=== PATIENT | male | born 1980 | race Caucasian/White ===

== ENCOUNTER → 2019-04-05 | Outpatient (CLI) | payer BC ==
--- NOTE | 2019-04-05 14:32 | US ---
EXAMINATION TYPE: US venous doppler duplex LE RT DATE OF EXAM: 04/05/2019 1:21 PM COMPARISON: NONE CLINICAL HISTORY: M79.604 pain in right leg. Right leg area of pain, swelling and warm to the touch SIDE PERFORMED: Right TECHNIQUE: The lower extremity deep venous system is examined utilizing real time linear array sonog rolando with graded compression, doppler sonography and color-flow sonography. VESSELS IMAGED: External Iliac Vein (EIV) Common Femoral Vein Deep Femoral Vein Greater Saphenous Vein * Femoral Vein Popliteal Vein Small Saphenous Vein * Proximal Calf Veins (* superficial vessels) Right Leg: Appears negative for DVT Right leg at patient's area of concern: thrombus seen within greater saphenous vein above knee, at kn ee and below knee. This is noncompressible. IMPRESSION: 1. Right lower extremity ultrasound negative for deep venous thrombosis. 2. There is thrombus within a superficial vessel, the greater saphenous vein at and below the level o f the knee.
== END | disposition home or self-care (01) ==
LOC: RADUSWWP 12:57
PROVIDERS: ATTEND Family Medicine
DX: I82.811 Embolism and thrombosis of superficial veins of right lower extremity (principal)

== ENCOUNTER 2019-12-26 18:41 | Emergency (ER) | payer BC ==
[2019-12-26 18:46] VITALS: BP 140/90; PULSE 73; RESP 16; TEMP 97.8
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
[2019-12-26 19:18] LABS: Appearance,Urine Cloudy (Clear); Bacteria,Urine Occasional /hpf; Bilirubin,Urine Negative (Negative); Blood,Urine Large (Negative); Budding Yeast,Urine Moderate /hpf; Color,Urine Red; Glucose,Urine (UA) Negative (Negative); Ketones,Urine Trace (Negative); Leukocyte Esterase,Urine Small (Negative); Mucus,Urine Many /hpf; Nitrite,Urine Negative (Negative); PH, Urine 5.5 (5.0-8.0); Protein,Urine 2+ (Negative); RBC,Urine >182 /hpf (0-5); Specific Gravity,Urine 1.025 (1.001-1.035); Squamous Epithelial Cell,Urine 5 /hpf (0-4); Urobilinogen,Urine <2.0 mg/dL (<2.0); WBC,Urine 77 /hpf (0-5)
[2019-12-26] MEDS ORDERED: cefTRIAXone 1,000 MG VIAL (IM USE) IM STA (19:49)
[2019-12-26] MEDS ORDERED: traMADol 50 MG STARTER PACK 3 TAB BTL PO STA (19:49)
[2019-12-26] MEDS ORDERED: KETOROLAC 30 MG/ML 1 ML VIAL IM STA (20:00)
== END 2019-12-26 20:18 | disposition home or self-care (01) ==
LOC: EC 18:41
DX: R82.71 Bacteriuria (principal); R31.9 Hematuria, unspecified; R10.2 Pelvic and perineal pain; Z95.0 Presence of cardiac pacemaker; Z90.49 Acquired absence of other specified parts of digestive tract
CPT/HCPCS: 81001; 87086; 99284; 96372 ×2; J0696; J1885

== ENCOUNTER → 2020-01-10 | Outpatient (CLI) | payer BC ==
--- NOTE | 2020-01-11 07:20 | XR ---
EXAMINATION TYPE: XR KUB DATE OF EXAM: 01/10/2020 COMPARISON: 08/07/2015 HISTORY: Abdominal pain TECHNIQUE: One view abdominal series FINDINGS: The osseous structures are intact. The bowel gas pattern is nonspecific. Surgical clips in the right upper quadrant. There are no suspicious calcifications overlying the kidneys. There is a vague density measuring 4 mm overlying the right transverse process of L3. No suspicious calcifications in the pelvis. Arthropathy of the hips. Correlate for femoral acetabular impingement.. IMPRESSION: 1. Nonspecific abdomen. 2. No suspicious calcifications overlying the kidneys. Vague density measuring 4 mm overlying the rig ht transverse process of L3 is indeterminant. Consider correlation with noncontrast CT scan.
--- NOTE | 2020-01-15 10:28 | US ---
EXAMINATION TYPE: US kidneys/renal and bladder DATE OF EXAM: 01/10/2020 COMPARISON: NONE CLINICAL HISTORY: N20.0 calculus of kidney. sharp pelvic pain,hematuria 2-3 weeks ago EXAM MEASUREMENTS: Right Kidney: 9.5 x 5.5 x 5.5 cm Left Kidney: 9.3 x 5.7 x 4.9 cm Right Kidney: no evidence of hydronephrosis Left Kidney: no evidence of hydronephrosis Bladder: appears wnl Bilateral Jets seen: no IMPRESSION: Unremarkable renal ultrasound
== END | disposition home or self-care (01) ==
LOC: RADUSWWP 16:03
PROVIDERS: ATTEND Urology
DX: N20.0 Calculus of kidney (principal)
CPT/HCPCS: 74018; 76770

== ENCOUNTER → 2020-08-26 | Outpatient (CLI) | payer BC ==
[2020-08-26 16:28] LABS: Basophils # (A) 0.1 k/uL (0-0.2); Basophils % (A) 1 %; Eosinophils # (A) 0.1 k/uL (0-0.7); Eosinophils % (A) 1 %; HCT 47.7 % (39.0-53.0); HGB 15.8 gm/dL (13.0-17.5); Lymphocytes # (A) 1.9 k/uL (1.0-4.8); Lymphocytes % (A) 16 %; MCH 30.7 pg (25.0-35.0); MCHC 33.2 g/dL (31.0-37.0); MCV 92.4 fL (80.0-100.0); Mean Platelet Volume 7.4; Monocytes # (A) 0.6 k/uL (0-1.0); Monocytes % (A) 5 %; Neutrophils # (A) 9.2 k/uL (1.3-7.7); Neutrophils % (A) 76 %; Platelet Count 253 k/uL (150-450); RBC 5.16 m/uL (4.30-5.90); RDW 13.3 % (11.5-15.5)
--- NOTE | 2020-08-26 16:28 | US ---
"EXAMINATION TYPE: US venous doppler duplex LE RT DATE OF EXAM: 08/26/2020 4:07 PM COMPARISON: Right lower extremity venous APRIL 05, 2019 CLINICAL HISTORY: M79.604 pain in right leg. pain, edema right leg SIDE PERFORMED: right TECHNIQUE: The lower extremity deep venous system is examined utilizing real time linear array sonog rolando with graded compression, doppler sonography and color-flow sonography. VESSELS IMAGED: Common Femoral Vein Deep Femoral Vein Greater Saphenous Vein * Femoral Vein Popliteal Vein Small Saphenous Vein * Proximal Calf Veins (* superficial vessels) Right Leg: *Positive for DVT, right femoral vein extending into popliteal vein. Enlarged lymph node right groin = 3.2 x 1.3 x 2.4cm initial images. Grayscale, color doppler, spectral doppler imaging performed of the deep veins of the right lower ext remities IMPRESSION: Enlarged abnormal right groin lymph node on initial images. Acute DVT beginning in the mid aspect of the right superficial femoral vein extending through the pop liteal vein into the proximal calf veins in the right lower extremity with nonvisualized color flow a nd noncompressibility. A [place] level critical message alert has been initiated for Rl Castañeda DO via the [email or web address] 60 | Critical Results System on 08/26/2020 4:26 PM. This message alert has been sent to Rl Castañeda DO via the preferences provided by the clinician for the receipt of Radiology Critical Findings. [place] ID [id number]."
[2020-08-26 16:40] LABS: Albumin 4.2 g/dL (3.5-5.0); Calcium 9.1 mg/dL (8.4-10.2); Potassium 4.3 mmol/L (3.5-5.1); Total Bilirubin 0.6 mg/dL (0.2-1.3); Total Protein 7.3 g/dL (6.3-8.2)
== END | disposition home or self-care (01) ==
LOC: RADUSWWP 15:36
PROVIDERS: ATTEND Family Medicine
DX: I82.411 Acute embolism and thrombosis of right femoral vein (principal); R59.9 Enlarged lymph nodes, unspecified; M79.604 Pain in right leg
CPT/HCPCS: 36415; 80053; 85025

== ENCOUNTER 2020-09-09 16:53 | Inpatient (IN) | payer BC ==
[2020-09-09] MEDS ORDERED: ONDANSETRON 4 MG/2 ML VIAL IVP STA (17:37)
[2020-09-09 18:02] LABS: Basophils # (A) 0.1 k/uL (0-0.2); Basophils % (A) 1 %; Eosinophils % (A) 0 %; HCT 47.8 % (39.0-53.0); HGB 16.5 gm/dL (13.0-17.5); Lymphocytes # (A) 1.2 k/uL (1.0-4.8); Lymphocytes % (A) 22 %; MCH 30.8 pg (25.0-35.0); MCHC 34.4 g/dL (31.0-37.0); MCV 89.6 fL (80.0-100.0); Mean Platelet Volume 6.9; Monocytes # (A) 0.3 k/uL (0-1.0); Monocytes % (A) 5 %; Neutrophils # (A) 3.8 k/uL (1.3-7.7); Neutrophils % (A) 70 %; Platelet Count 249 k/uL (150-450); RBC 5.34 m/uL (4.30-5.90); RDW 12.8 % (11.5-15.5); WBC 5.5 k/uL (3.8-10.6)
[2020-09-09 18:13] LABS: Calcium 8.7 mg/dL (8.4-10.2); Potassium 3.9 mmol/L (3.5-5.1); Total Bilirubin 0.6 mg/dL (0.2-1.3)
[2020-09-09 18:15] LABS: INR 1.1 (<1.2); Prothrombin Time 11.3 sec (9.0-12.0)
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
--- NOTE | 2020-09-09 19:05 | CT ---
EXAMINATION TYPE: CT angio chest DATE OF EXAM: 09/09/2020 6:30 PM COMPARISON: None available. HISTORY: Dyspnea on exertion. CT DLP: 579.3 mGycm Automated exposure control for dose reduction was used. CONTRAST: CTA scan of the thorax is performed with IV Contrast, patient injected with 100 mL of Isovue 370, pul monary embolism protocol. MIP images are created and reviewed. FINDINGS: LUNGS: There are diffuse moderate scattered moderate patchy groundglass opacities with consolidations in the right lung most prominent in the lower lobe. Additional mild patchy groundglass was opacities in the lingula and left lower lobe. MEDIASTINUM: There is satisfactory enhancement of the pulmonary artery and its branches. There are mu ltiple filling defects in the right lower lobe pulmonary artery lobar, segmental and subsegmental bra nches. There are a few filling defects in the left lower lobe segmental and subsegmental branches. Th ere are scattered few small to borderline-enlarged mediastinal lymph nodes. Left AICD seen. OTHER: No additional significant abnormality is seen. Right clavicle ORIF and cholecystectomy are se en. IMPRESSION: BILATERAL PULMONARY EMBOLI, MOST PRONOUNCED IN THE RIGHT LOWER LOBE. ADDITIONAL BILATERAL GROUNDGLASS OPACITIES AND CONSOLIDATIONS, MOST PRONOUNCED IN THE RIGHT LOWER LOB E. CORRELATE FOR ATYPICAL INFECTION SUCH COVID PNEUMONIA. SUPERIMPOSED PULMONARY INFARCTs CANNOT B E ENTIRELY EXCLUDED. FINDINGS WERE REPORTED TO THE CARING PHYSICIAN BY ME AT TIME OF DICTATION.
[2020-09-09] MEDS ORDERED: ONDANSETRON 4 MG/2 ML VIAL IVP PRN (19:21)
[2020-09-09] MEDS: RIVAROXABAN 15 MG TAB PO SCH (21:19)
[2020-09-09 22:14] LABS: C Reactive Protein 17.6 mg/L (<10.0)
[2020-09-10] MEDS: PANTOPRAZOLE 40 MG TABLET PO SCH (06:40)
[2020-09-10] MEDS: RIVAROXABAN 15 MG TAB PO SCH ×2 (09:35→20:34)
[2020-09-10] MEDS: ASPIRIN 81 MG PO SCH (09:35)
[2020-09-10] MEDS: METOPROLOL SUCCINATE (ER) 50 MG TAB.ER.24H PO SCH (09:35)
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
[2020-09-10] MEDS: dexAMETHasone 2 MG TAB PO SCH (09:36)
--- NOTE | 2020-09-10 11:08 | ECHOF ---
Referral Reason:dyspnea, covid, elevated troponin MEASUREMENTS -------- HEIGHT: 182.9 cm WEIGHT: 111.1 kg BP: 116/69 RVIDd: 3.3 cm (< 3.3) IVSd: 1.7 cm (0.6 - 1.1) LVIDd: 4.2 cm (3.9 - 5.3) LVPWd: 1.6 cm (0.6 - 1.1) IVSs: 2.1 cm LVIDs: 2.9 cm LVPWs: 1.8 cm LA Diam: 3.6 cm (2.7 - 3.8) LAESV Index (A-L): 23.57 ml/m Ao Diam: 3.3 cm (2.0 - 3.7) AV Cusp: 2.2 cm (1.5 - 2.6) MV EXCURSION: 15.965 mm (> 18.000) MV EF SLOPE: 82 mm/s (70 - 150) EPSS: 0.3 cm MV E Joey: 0.58 m/s MV DecT: 280 ms MV A Joey: 0.60 m/s MV E/A Ratio: 0.97 RAP: 5.00 mmHg RVSP: 37.64 mmHg FINDINGS -------- Sinus rhythm. This was a technically difficult study with suboptimal views. The left ventricular size is normal. There is severe concentric left ventricular hypertrophy. Ove rall left ventricular systolic function is low-normal with, an EF between 50 - 55 %. The right ventricle is mildly enlarged. Normal LA size by volume 22+/-6 ml/m2. The right atrium is normal in size. 5.0mg OF Lumason UTLIZED: 2 OR MORE WALL SEGMENTS NOT VISUALIZED. The aortic valve is trileaflet and appears structurally normal. The mitral valve leaflets are mildly thickened. Mild tricuspid regurgitation present. There is mild pulmonary hypertension. The right ventricular systolic pressure, as measured by Doppler, is 37.64mmHg. Trace/mild (physiologic) pulmonic regurgitation. The aortic root size is normal. IVC Not well visulized. There is no pericardial effusion. CONCLUSIONS -------- 1. The left ventricular size is normal. 2. There is severe concentric left ventricular hypertrophy. 3. Overall left ventricular systolic function is low-normal with, an EF between 50 - 55 %. 4. The right ventricle is mildly enlarged. 5. Normal LA size by volume 22+/-6 ml/m2. 6. 5.0mg OF Lumason UTLIZED: 2 OR MORE WALL SEGMENTS NOT VISUALIZED. 7. The mitral valve leaflets are mildly thickened. 8. Mild tricuspid regurgitation present. 9. There is mild pulmonary hypertension. 10. The right ventricular systolic pressure, as measured by Doppler, is 37.64mmHg. 11. Trace/mild (physiologic) pulmonic regurgitation. 12. There is no pericardial effusion. SPANISH LINGUIST: Faith Johnson RDCS
[2020-09-10] MEDS: ACETAMINOPHEN TAB 325 MG TAB PO PRN (14:49)
[2020-09-10 15:45] VITALS: RESP 18
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
[2020-09-10] MEDS: CHOLECALCIFEROL 25 MCG (1000 IU) TABLET PO SCH (20:33)
[2020-09-10] MEDS: FAMOTIDINE 20 MG TAB PO SCH (20:34)
[2020-09-10] MEDS: ZINC SULFATE 220 MG CAP PO SCH (20:34)
[2020-09-10] MEDS: ASCORBIC ACID 500 MG TAB PO SCH (20:34)
[2020-09-11] MEDS: ACETAMINOPHEN TAB 325 MG TAB PO PRN (00:17)
[2020-09-11 04:01] VITALS: TEMP 98
[2020-09-11] MEDS: PANTOPRAZOLE 40 MG TABLET PO SCH (07:01)
[2020-09-11] MEDS: ASPIRIN 81 MG PO SCH (08:39)
[2020-09-11] MEDS: FAMOTIDINE 20 MG TAB PO SCH (08:39)
[2020-09-11] MEDS: dexAMETHasone 2 MG TAB PO SCH (08:39)
[2020-09-11] MEDS: CHOLECALCIFEROL 25 MCG (1000 IU) TABLET PO SCH (08:39)
[2020-09-11] MEDS: METOPROLOL SUCCINATE (ER) 50 MG TAB.ER.24H PO SCH (08:39)
[2020-09-11] MEDS: ASCORBIC ACID 500 MG TAB PO SCH (08:39)
[2020-09-11] MEDS: ZINC SULFATE 220 MG CAP PO SCH (08:40)
[2020-09-11] MEDS: RIVAROXABAN 15 MG TAB PO SCH (08:40)
[2020-09-11 09:54] VITALS: BP 128/66; PULSE 78
--- NOTE | 2020-09-11 10:33 | P.PN ---
Subjective Progress Note Date: 09/11/20 39-year-old male patient who presented to the ED with worsening shortness of breath. His shortness of breath was essentially exertional. No loss in taste or smell. He had some nausea and one episode of emesis. In the ED, the patient was confirmed to have covid 19 infection. Also, this patient was diagnosed having a right lower extremity DVT approximately 10 days ago. Ultrasound the lower extremity that was done on 08/26/2020 showed an acute DVT beginning in the mid aspect of the right superficial femoral vein extending into the popliteal vein into the proximal calf pain in the right lower extremity. There was also an enlarged abnormal the right groin lymph node on the images. He was started on anticoagulation. He shortness of breath started after he was started on anticoagulation. Mother the patient was taken Xarelto starter pack regarding DVT of lower extremity. The patient's blood work also showed a proBNP level of 175, troponin of 0.035, normal ALT and AST, normal electrolytes, creatinine of 1.1, and the patient had a normal coagulation profile, hemoglobin of 16.5 with a platelet count of 249. A CT of the chest was done and showed evidence of multiple filling defects in the righ in addition to Covid 19 related pneumonia. T lower lobe pulmonary artery lobar segmental and subsegmental branches. There was also few filling defects in the left lower lobe segmental and subsegmental branches. There was also evidence of diffuse moderate patchy groundglass opacities and consolidation in the right lower lobe most prominent in the right lower lobe area. Some additional patchy infiltrates were seen in the lingula and the left lower lobe. Patient had an AICD in place. Note that these additional groundglass opacities and consolidation could be also related to pulmonary infarct/embolism versus Covid 19 related pneumonia. EKG showing a normal sinus tachycardia. This patient also carries the diagnosis of hypertrophic cardiomyopathy. He was further evaluated [facility] and the patient has undergone echocardiogram, stress test and cardiac MRI. He also had history of nonsustained V. tach that was essentially exercise-induced VT. Cardiac MRI showed presence of asymmetric hypertrophic cardiomyopathy of the basal anterior segment with a maximal thickness of 31 mm. Based on all this, the patient was given dual chamber AICD. 09/11/2020, the patient is feeling much better. He has no specific complaints. No chest pain. No shortness of breath. No pleurisy. No hemoptysis. She is currently on Xarelto 15 mg by mouth twice a day and after 3 weeks of treatment he will be switched to 20 mg once a day. His room air pulse ox is 98%. He is afebrile. No nausea. No vomiting. No diarrhea. No abdominal pain. He is currently on oral Decadron. Note that his d-dimer level is also dropping is currently down to 2.36. Objective - Vital Signs Vital signs: Vital Signs Temp 98.0 F 09/11/20 08:00 Pulse 78 09/11/20 08:00 Resp 18 09/11/20 08:00 BP 128/66 09/11/20 08:00 Pulse Ox 98 09/11/20 08:00 Intake & Output 09/10/20 09/11/20 09/11/20 18:59 06:59 18:59 Intake Total 260 240 Balance 260 240 Weight 111.13 kg 114.3 kg Intake: IV 20 Invasive Line 1 20 Oral 240 240 Other: Voiding Method Toilet # Voids 2 2 - Exam The patient appeared well nourished and normally developed. Vital signs as documented. Head exam is unremarkable. No scleral icterus or corneal arcus n oted. Neck is without jugular venous distension, thyromegaly, or carotid bruits. Carotid upstrokes are brisk bilaterally. Lungs are equal and symmetrical breath sounds and the patient has crackles in lung bases bilaterally.. Cardiac exam reveals the PMI to be normally sized and situated. Rhythm is regular. First and second heart sounds normal. No murmurs, rubs or gallops. Abdominal exam reveals normal bowel sounds, no masses, no organomegaly and no aortic enlargement. Extremities are nonedematous and both femoral and pedal pulses are normal.Examination of the skin revealed no evidence of significant rashes, suspicious appearing nevi or other concerning lesions.Neurologically, the patient is awake and alert and the patient does not have any focal neurological deficit. Cranial nerves are essentially intact. Examination of the skin revealed no evidence of significant rashes, suspicious appearing nevi or other concerning lesions.Neurologically, the patient is awake and alert and the pat ient does not have any focal neurological deficit. Cranial nerves are essentially intact. - Labs CBC & Chem 7: 09/09/20 17:48 03/22/21 17:48 Labs: Abnormal Lab Results - Last 24 Hours (Table) 09/11/20 Range/Units 09:21 D-Dimer 2.36 H (<0.60) mg/L FEU Assessment and Plan Plan: 1 acute shortness of breath, multifactorial, contributing factors of pulmonary embolism secondary to right lower extremity DVT and Covid 19 related pneumonia. Note that the patient better groundglass changes more so in the right lower lobe and this could be a representation of Covid 19 related pneumonia versus embolization with infarct. note that the exact timing of the pulmonary embolism cannot be accurately determined. The patient had a DVT of the right lower extremity on 08/26/2020 and the patient was also Xarelto. It's possible that the patient had a pulmonary embolism at the same time and the clot seen in the lungs are probably representation of an early pulmonary embolism and a decompensating factor leading to his current hospitalization could be Covid 19 related pneumonia. I'm not sure this is treatment failure at this point in time and the patient will be kept on Xarelto. It is also possible that the patient had called with even back then at time of his DVT and symptoms care done 2 acute bilateral pulmonary embolism more so on the right with an underlying right lower extremity DVT. The exact sugar is not clear. Could be hypercoagulability attributed to Covid 19 related infection. The patient DVT approximately 10 days ago and subsequently he developed more embolism. He was on Xarelto starter pack 3 acute Covid 19 related pneumonia 4 acute hypoxic respiratory failure 5 history of hypertrophic cardiomyopathy and the patient has an AICD in place 6 history of exercise-induced VT 7 hypertension 8 Troponin leak secondary to PE Plan This patient is clinically improving and currently is on room air oxygen. I do not see the need for home oxygen supplementation. He should complete a total of 10 day course of Decadron 6 mg. He will be transitioned to 20 mg of Xarelto after completing 3 weeks of treatment. Echocardiogram was noted. No major a bnormalities. Inflammatory markers are improving. He is on room air oxygen. He should be able to go home and should be able to discharge home today. I'm very happy with his progress. I asked him to come and see her back in the office in 2 weeks for further follow-up.
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
[2020-09-11 12:46] VITALS: BMI 34.2
--- NOTE | 2020-09-12 14:30 | P.DS ---
Providers Date of admission: 09/09/20 19:26 Expected date of discharge: 09/11/20 Attending physician: Av Guerrero Consults: 09/09/20 19:22 Consult Physician Routine Consulting Provider: Louie Washington Consult Reason/Comments: PE's, COVID pneumonia Do you want consulting provider notified?: Yes 09/09/20 19:23 Consult Physician Routine Consulting Provider: Nikki Hernández Consult Reason/Comments: dyspnea, covid, elevated troponin Do you want consulting provider notified?: Yes Primary care physician: Rl [facility] Course: Chief Complaint: Mild shortness of breath History of presenting complaint: This is a pleasant 39-year-old patient of Dr. Castañeda. Chronic stable medical conditions include hypertension, hypertrophic cardiomyopathy, exercise-induced nonsustained V. tach, DVT. Patient has AICD. about 2 weeks ago ,presented to the urgent care with a swollen right leg, diagnosed to have DVT and was sent home on xarelto. After 3 days he had some chills and nausea. [place] it was a side effect of xarelto. Subsequently had some diarrhea. Mild shortness of breath. Some nausea. No loss of taste or smell. No body aches no fever . Presented to the ER here. Chest CTA did show pulmonary embolism. Patient also tested positive for COVID 19. chemical markers were positive for the same. has been on xarelto 15 mg twice a day. This was continued. Patient's appetite has been fair. Patient denies any chest pain. Small bump in troponin. It is felt that patient possibly had COVID 19 starting on the of this month. Symptoms have been mild. Started on dexamethasone. Already anticoagulated with xarelto. right calf swelling is coming down. Stockings given. Patient felt to have COVID 19 myocarditis. With a troponin leak. Manage conservatively. Seen by cardiology. Today-patient is doing well. Up and about. Care was discussed length with the patient. Questions answered. Including about isolation. Pulse ox 98% room air. Appetite fair. Instructions as per cardiology and pulmonary. Discussion and discharge planning more than 35 minutes Consultation: Dr. Vinny Samaniego from cardiology Dr. Washington from pulmonary Past medical history to include: Right leg DVT on August 26: Hypertension hypertrophic cardiomyopathy, exercise- induced V. tach, AICD, kidney stones Social history: with 2 children. Works at the [employer]. No smoking or alcohol. No recreational drugs. Physical examination: VITAL SIGNS: 98, 78, 18, 128/66, 98% room air GENERAL: sitting up in bed, comfortable. PSYCH: Alert and oriented x3; mood and affect normal. Rest of the exam as per pulmonary INVESTIGATIONS, reviewed in the clinical context: September 11: D-dimer 2.36 CRP 24.2 WBC 5. hemoglobin 16.5 platelets 249 potassium 3.9 creatinine 1.17 D-dimer 4.16 Potassium 3.9 creatinine 1.17 CRP 17.6 Troponin I 0.035, 0.046, 0.046 Coronavirus [PCR]-not detected EKG tracing personally reviewed by me-normal sinus rhythm, left bundle-branch block Chest CTA: Bilateral pulmonary embolism. Most pronounced the right lower lobe. Additional bilateral groundglass opacities consolidations 2-D echocardiogram: Severe concentric LVH, EF 50-55% Previous studies: Ultrasound right lower extremity on [08/26/2020]: Acute DVT beginning in the mid aspect of the right superficial femoral vein extending through the popliteal vein into her proximal calf in the right lower extremity Assessment and plan: -Acute bilateral COVID 19 pneumonia possibly started around the 29 of August. Symptoms have been subtle. With mild shortness of breath. And some diarrhea. Nausea. dexamethasone ,already anticoagulated. -Acute DVT in the right superficial femoral vein extending through the popliteal vein along with bilateral pulmonary embolism diagnosed on August 26. right calf swelling actually has gone down since then. Patient's symptoms seem to predominantly from COVID 19 for this presentation. Patient to continue on the current dose of xarelto. bilateral lower extremity stockings. -Acute myocarditis secondary to COVID 19. Not acute coronary syndrome. -Hypertropic cardiomyopathy. Follow clinically. -Essential hypertension, continue with Toprol-XL -AICD Disposition: Home Patient Condition at Discharge: Fair Plan - Discharge Summary Discharge Rx Participant: No New Discharge Prescriptions: New dexAMETHasone [Hexadrol] 6 mg PO DAILY #24 tab Cholecalciferol [Vitamin D3 (25 Mcg = 1000 Iu)] 100 mcg PO DAILY #60 tablet Zinc Sulfate [Orazinc] 220 mg PO DAILY #30 cap Famotidine [Pepcid] 20 mg PO BID #60 tab Ascorbic Acid [Vitamin C] 1,000 mg PO DAILY #30 tab Continue Metoprolol Succinate (ER) [Toprol XL] 50 mg PO DAILY Rivaroxaban [Xarelto Starter Pack] See Taper PO DIRECTED Metoprolol Succinate (ER) [Toprol XL] 100 mg PO DIRECTED Aspirin EC [Ecotrin Low Dose] 81 mg PO DAILY Discharge Medication List Aspirin EC [Ecotrin Low Dose] 81 mg PO DAILY 09/09/20 [History] Metoprolol Succinate (ER) [Toprol XL] 50 mg PO DAILY 09/09/20 [History] Metoprolol Succinate (ER) [Toprol XL] 100 mg PO DIRECTED 09/09/20 [History] Rivaroxaban [Xarelto Starter Pack] See Taper PO DIRECTED 09/09/20 [History] Ascorbic Acid [Vitamin C] 1,000 mg PO DAILY #30 tab 09/11/20 [Rx] Cholecalciferol [Vitamin D3 (25 Mcg = 1000 Iu)] 100 mcg PO DAILY #60 tablet 09/11/20 [Rx] Famotidine [Pepcid] 20 mg PO BID #60 tab 09/11/20 [Rx] Zinc Sulfate [Orazinc] 220 mg PO DAILY #30 cap 09/11/20 [Rx] dexAMETHasone [Hexadrol] 6 mg PO DAILY #24 tab 09/11/20 [Rx] Follow up Appointment(s)/Referral(s): Rl Castañeda DO [Primary Care Provider] - 10/02/20 2:00 pm (Same appointment, also made into a hospital follow-up) Abdulkadir Triplett MD [STAFF PHYSICIAN] - 10/08/20 4:00 pm (Call office for any appointment time conflicts) Louie Washington MD [STAFF PHYSICIAN] - 10/11/20 9:30 am Patient Instructions/Handouts: Coronavirus Disease 2019 (COVID-19), Pulmonary Embolism (DC), Deep Vein Thrombosis (DC) Activity/Diet/Wound Care/Special Instructions: covid 19 dc instructions Discharge Disposition: HOME SELF-CARE
--- NOTE | 2020-09-13 12:25 | CDI ---
Documentation Clarification Form Date: 09/13/2020 12:24:00 PM From: Janae Palacio CCS Admit Date: 09/09/2020 07:26:00 PM Patient Name: Anthony Ponce Visit Number: [id number] Discharge Date: 09/11/2020 02:22:00 PM ATTENTION: The Clinical Documentation Specialists (CDI) and [facility] Coding Staff appreciate your assistance in clarifying documentation. Please respond to the clarification below the line at the bottom and electronically sign. The CDI & [facility] Coding staff will review the response and follow-up if needed. Please note: Queries are made part of the Legal Health Record. If you have any questions, please contact the author of this message via ITS. Dr. Av Guerrero Your patient has a documented diagnosis of acute hypoxic respiratory failure - which may lack sufficient clinical evidence/support. 09/10 Consult documents: acute hypoxic respiratory failure History/Risk Factors: COVID 19, Bilateral pulmonary embolism, DVT, HTN, AICD status, Hypertrophic cardiomyopathy Clinical Indicators: Mild shortness of breath Vitals: 09/09 BP 139/86, NC 102, RR 20, Oc Sat 96 on RA- 09/10 BP 134/74, NC 85, RR 18, O2 Sat 96 on RA Respiratory Assessment: Short of breath with exertion Treatment: Monitor respiratory status Based on the clinical evidence and your professional judgment, do you feel acute hypoxic respiratory faiure is a valid diagnosis? Yes, acute hypoxic respiratory failure was present/active during this admission as evidence by No, acute hypoxic respiratory failure was ruled out. Other (please specify diagnosis) Unable to determine _No, acute hypoxic respiratory failure was ruled out. MTDD
== END 2020-09-11 14:22 | disposition home or self-care (01) | DRG 177 ==
LOC: EC 16:53 → 5NMEDONC 19:26 → 4SSUR 19:26 → 3SCARD 09-10 09:11
PROVIDERS: ADMIT Hospitalist; ATTEND Hospitalist
DX: U07.1 COVID-19 (principal); J12.82 Pneumonia due to coronavirus disease 2019; I26.99 Other pulmonary embolism without acute cor pulmonale; I40.8 Other acute myocarditis; I82.411 Acute embolism and thrombosis of right femoral vein; I42.2 Other hypertrophic cardiomyopathy; A08.39 Other viral enteritis; I27.22 Pulmonary hypertension due to left heart disease; I11.9 Hypertensive heart disease without heart failure; R09.02 Hypoxemia; I44.7 Left bundle-branch block, unspecified; R77.8 Other specified abnormalities of plasma proteins; Z71.3 Dietary counseling and surveillance; Z79.01 Long term (current) use of anticoagulants; Z79.82 Long term (current) use of aspirin; Z79.899 Other long term (current) drug therapy; Z90.49 Acquired absence of other specified parts of digestive tract; Z87.81 Personal history of (healed) traumatic fracture; Z95.810 Presence of automatic (implantable) cardiac defibrillator; Z98.890 Other specified postprocedural states; Z87.442 Personal history of urinary calculi; Z82.49 Family history of ischemic heart disease and other diseases of the circulatory system
CPT/HCPCS: 36415; 71275; 80053; 83615; 83880; 84484; 85025; 85379; 85610; 85730; 86140; 87502; 87635; 93005; 93306; 96374; 99285

== ENCOUNTER → 2021-02-26 | Outpatient (CLI) | payer BC ==
--- NOTE | 2021-02-26 15:14 | CT ---
CT CHEST FOR PULMONARY EMBOLISM. EXAMINATION TYPE: CT angio chest DATE OF EXAM: 02/26/2021 INDICATION: follow up history of pulmonary embolus post COVID infection CT DLP: 562.9 mGycm, Automated exposure control for dose reduction was used. CONTRAST: Patient injected with 100 mL of Isovue 370. COMPARISON: 09/09/2020 TECHNIQUE: CT of the chest is performed on a spiral scan at 2 mm thick sections. Study is performed with intravenous contrast timed for evaluation for pulmonary embolism. This will limit additional po rtions of the evaluation. 3-D MIP images reconstructed by the technologist are reviewed on the compu ter in the coronal and sagittal planes. FINDINGS: No persistent filling defects are evident to suggest an acute pulmonary embolism. Previous right lowe r lobe emboli are not identified. No mediastinal or hilar adenopathy enlarged by CT criteria is evident. The ascending aorta diameter at the level of the main pulmonary artery is 3.4 cm. The main pulmonary artery diameter at the bifur cation is 3.2 cm. Lung windows are clear. Limited CT section through the upper abdomen are unremarkable. IMPRESSIONS: 1. No acute pulmonary embolism. 2. No acute pulmonary process.
== END | disposition home or self-care (01) ==
LOC: RADCTMAIN 13:31
PROVIDERS: ATTEND Family Medicine
DX: Z09 Encounter for follow-up examination after completed treatment for conditions other than malignant neoplasm (principal); Z86.711 Personal history of pulmonary embolism; Z86.16 Personal history of COVID-19
CPT/HCPCS: 71275; Q9967

== ENCOUNTER → 2021-04-08 | Outpatient (CLI) | payer BC ==
--- NOTE | 2021-04-08 15:59 | US ---
EXAMINATION TYPE: US venous doppler duplex LE RT DATE OF EXAM: 04/08/2021 1:33 PM COMPARISON: NONE CLINICAL HISTORY: 40-year-old male I82.409 acute embolism of lower extremity. Hx of DVT right leg SIDE PERFORMED: right TECHNIQUE: The lower extremity deep venous system is examined utilizing real time linear array sonog rolando with graded compression, doppler sonography and color-flow sonography. FINDINGS: VESSELS IMAGED: Common Femoral Vein Deep Femoral Vein Greater Saphenous Vein * Femoral Vein Popliteal Vein Small Saphenous Vein * Proximal Calf Veins (* superficial vessels) Right Leg: *positive for DVT. Thready flow with partial compression right popliteal vein. There is a left node right groin = 3.3 x 1.3 x 2.4cm (versus 3.2 x 1.3 x 2.4 cm, previously. IMPRESSION: 1. Improvement in the previously seen right lower extremity DVT. Residual, chronic nonocclusive DVT r emains in the popliteal vein. 2. Stable enlarged left inguinal lymph node measuring 3.3 x 2.4 x 1.3 cm (2.4 cm short axis). This sh ows no shawna replacement of the hilum. Favor a reactive lymph node.
== END | disposition home or self-care (01) ==
LOC: RADUSWWP 12:57
PROVIDERS: ATTEND Family Medicine
DX: I82.531 Chronic embolism and thrombosis of right popliteal vein (principal); R59.0 Localized enlarged lymph nodes

== ENCOUNTER 2022-06-27 12:07 | Observation (INO) | payer BC ==
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
--- NOTE | 2022-06-27 13:10 | XR ---
EXAMINATION TYPE: XR chest 2V DATE OF EXAM: 06/27/2022 COMPARISON: CTA chest February 26, 2021 HISTORY: Shortness of breath TECHNIQUE: Frontal and lateral views of the chest are obtained. FINDINGS: Surgical change to right clavicle is redemonstrated. There is mild chronic parenchymal jose nge without suspicious focal air space opacity, pleural effusion, or pneumothorax seen. There is mild cardiomegaly with dual lead pacemaker. Cholecystectomy clips are redemonstrated. IMPRESSION: Chronic changes and cardiomegaly without acute pulmonary process.
--- NOTE | 2022-06-27 13:32 | US ---
EXAMINATION TYPE: US venous doppler duplex LE LT DATE OF EXAM: 06/27/2022 1:10 PM COMPARISON: NONE CLINICAL HISTORY: r/out blood clot. Left calf pain. HX blood clot in right leg x 2 years ago. Not o n blood thinners. No redness. SIDE PERFORMED: Left TECHNIQUE: The lower extremity deep venous system is examined utilizing real time linear array sonog rolando with graded compression, doppler sonography and color-flow sonography. VESSELS IMAGED: Common Femoral Vein Deep Femoral Vein Greater Saphenous Vein * Femoral Vein Popliteal Vein Small Saphenous Vein * Proximal Calf Veins (* superficial vessels) Left Leg: POSITIVE for DVT in distal femoral vein to proximal calf veins. Grayscale, color doppler, spectral doppler imaging performed of the deep veins of the left lower extr emity. IMPRESSION: Acute DVT is present beginning in the distal superficial femoral vein extending below th e knee into the proximal calf veins.
[2022-06-27 14:15] LABS: HCT 48.5 % (39.0-53.0); HGB 16.6 gm/dL (13.0-17.5); MCH 30.2 pg (25.0-35.0); MCHC 34.2 g/dL (31.0-37.0); MCV 88.4 fL (80.0-100.0); Platelet Count 213 k/uL (150-450); RBC 5.49 m/uL (4.30-5.90); WBC 11.5 k/uL (3.8-10.6)
[2022-06-27 14:25] LABS: ALT 37 U/L (4-49); AST 26 U/L (17-59); African American GFR (CKD) >90 (>60 ml/min/1.73 sqM); Albumin 4.3 g/dL (3.5-5.0); Alkaline Phosphatase 162 U/L (38-126); Anion Gap 9 mmol/L; Blood Urea Nitrogen 12 mg/dL (9-20); Calcium 8.9 mg/dL (8.4-10.2); Carbon Dioxide 24 mmol/L (22-30); Chloride 108 mmol/L (98-107); Glucose 100 mg/dL (74-99); Non-African American GFR(CKD) 87 (>60 ml/min/1.73 sqM); Potassium 3.9 mmol/L (3.5-5.1); Sodium 141 mmol/L (137-145); Total Bilirubin 0.7 mg/dL (0.2-1.3); Total Protein 7.4 g/dL (6.3-8.2)
[2022-06-27 14:26] LABS: Partial Thromboplastin Time 23.9 sec (22.0-30.0); Prothrombin Time 10.6 sec (9.0-12.0)
[2022-06-27] MEDS ORDERED: HEPARIN SODIUM 1,000 UN/ML (10ML VL) IV ONE (15:48)
[2022-06-27] MEDS ORDERED: HEPARIN SODIUM 1,000 UN/ML (10ML VL) IV PRN (15:48)
--- NOTE | 2022-06-27 15:50 | CT ---
EXAMINATION TYPE: CT angio chest DATE OF EXAM: 06/27/2022 COMPARISON: 02/26/2021 HISTORY: SOB and elevated D-Dimer CT DLP: 801.5 mGycm Automated exposure control for dose reduction was used. CONTRAST: Performed with IV Contrast, patient injected with 85 mL of Isovue 370. There are Three-D postprocessed images. There is mild increased interstitial density in the lower lung arroyo bilaterally. Heart is enlarged. No pericardial effusion. No pleural effusion. There are numerous filling defects in the upper and lower lobe pulmonary artery branches bilaterally. Thoracic aorta is intact. No aneurysm or dissection. There are large central pulmonary arteries. The thoracic spine is intact. No compression fracture. There are sternal wires. Upper abdominal soft tissues are intact. IMPRESSION: Multiple bilateral upper lobe pulmonary emboli. Enlarged pulmonary arteries consistent with pulmonary hypertension. Pulmonary emboli appear new compared to old exam. Mild cardiomegaly. Exam was discussed with emergency room attending staff at 4:00 PM.
[2022-06-27] MEDS: HEPARIN SOD,PORK IN 0.45% NACL 25,000 UNIT in 0.45% NACL 1 250ML.BAG IV SCH (15:56)
[2022-06-27] MEDS ORDERED: NALOXONE 0.4 MG/ML 1 ML VIAL IV PRN (16:24)
[2022-06-27] MEDS: PANTOPRAZOLE 40 MG/10 ML VIAL IV SCH (19:13)
[2022-06-28] MEDS: HEPARIN SOD,PORK IN 0.45% NACL 25,000 UNIT in 0.45% NACL 1 250ML.BAG IV SCH ×2 (04:48→16:48)
[2022-06-28] MEDS ORDERED: ASPIRIN 81 MG PO SCH (09:00)
[2022-06-28] MEDS: METOPROLOL SUCCINATE (ER) 100 MG TAB.ER.24H PO SCH (09:05)
[2022-06-28] MEDS: PANTOPRAZOLE 40 MG/10 ML VIAL IV SCH (09:05)
[2022-06-28] MEDS: MULTIVITAMINS, THERA 1 EACH TAB PO SCH (09:05)
[2022-06-28 09:13] LABS: Basophils # (A) 0.1 k/uL (0-0.2); Basophils % (A) 1 %; Eosinophils # (A) 0.2 k/uL (0-0.7); Eosinophils % (A) 2 %; HCT 44.2 % (39.0-53.0); Lymphocytes # (A) 2.9 k/uL (1.0-4.8); Lymphocytes % (A) 26 %; MCH 30.4 pg (25.0-35.0); MCV 89.4 fL (80.0-100.0); Mean Platelet Volume 8.5; Monocytes # (A) 0.5 k/uL (0-1.0); Monocytes % (A) 4 %; Neutrophils # (A) 7.3 k/uL (1.3-7.7); Neutrophils % (A) 65 %; Platelet Count 191 k/uL (150-450); RBC 4.95 m/uL (4.30-5.90); RDW 13.1 % (11.5-15.5); WBC 11.1 k/uL (3.8-10.6)
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
[2022-06-28] MEDS: FAMOTIDINE 20 MG TAB PO SCH (21:36)
[2022-06-29] MEDS: METOPROLOL SUCCINATE (ER) 100 MG TAB.ER.24H PO SCH (08:31)
[2022-06-29] MEDS: FAMOTIDINE 20 MG TAB PO SCH (08:31)
[2022-06-29] MEDS: MULTIVITAMINS, THERA 1 EACH TAB PO SCH (08:32)
[2022-06-29 08:35] VITALS: BP 124/80; PULSE 88; RESP 14; TEMP 97.6
[2022-06-29] MEDS ORDERED: APIXABAN 5 MG TAB PO SCH (09:00)
[2022-06-29] MEDS: HEPARIN SOD,PORK IN 0.45% NACL 25,000 UNIT in 0.45% NACL 1 250ML.BAG IV SCH (09:40)
--- NOTE | 2022-06-29 11:16 | CA ---
Transthoracic Echo Report Name: Anthony Ponce Age: 41 Gender: M : 1980 Exam Date: 06/29/2022 09:54 Exam Location: [facility] Ht (in): 72 Wt (lb): 243 Ordering Physician: Louie Washington MD Attending/Referring Phys: [employer] Consultant Velvet Shrestha RDCS Procedure CPT: Indications: LV function Cardiac Hx: Technical Quality: Technically difficult study Contrast 1: Lumason Total Dose (mL): 4 Contrast 2: Total Dose (mL): MEASUREMENTS (Male / Female) Normal Values 2D ECHO LV Diastolic Diameter PLAX 4.9 cm 4.2 - 5.9 / 3.9 - 5.3 cm LV Systolic Diameter PLAX 4.2 cm IVS Diastolic Thickness 1.4 cm 0.6 - 1.0 / 0.6 - 0.9 cm LVPW Diastolic Thickness 1.7 cm 0.6 - 1.0 / 0.6 - 0.9 cm LV Relative Wall Thickness 0.6 RV Internal Dim ED PLAX 3.7 cm LA Systolic Diameter LX 3.9 cm 3.0 - 4.0 / 2.7 - 3.8 cm M-MODE Aortic Root Diameter MM 3.2 cm LA Systolic Diameter MM 4.0 cm LA Ao Ratio MM 1.2 MV E Point Septal Separation 0.5 cm AV Cusp Separation MM 2.5 cm DOPPLER MV Area PHT 3.1 cm??? Mitral E Point Velocity 49.4 cm/s Mitral A Point Velocity 58.2 cm/s Mitral E to A Ratio 0.8 MV Deceleration Time 247.8 ms MV E' Velocity 4.2 cm/s Mitral E to MV E' Ratio 11.9 FINDINGS Left Ventricle Moderately increased septal wall thickness. Left ventricular cavity size normal. Left ventricular ejection fraction is estimated at 55%. Right Ventricle Normal right ventricular size and function. Right ventricular systolic pressure within normal limits. Right Atrium Normal right atrial size. Left Atrium Normal left atrial size. Mitral Valve Structurally normal mitral valve. Mild mitral regurgitation. Aortic Valve Trileaflet aortic valve. Tricuspid Valve Structurally normal tricuspid valve. Mild tricuspid regurgitation. Pulmonic Valve Pulmonic valve not well visualized. Pericardium Echo free space anterior to the right ventricle likely represents a fat pad. Aorta Normal size aortic root and proximal ascending aorta. CONCLUSIONS Technically difficult study. Grossley LV systolic function is normal. There is mild mitral and tricuspid insufficiency. Previewed by: Dr. Malik Pelayo MD (Electronically Signed) Final Date: 29 June 2022 11:15
--- NOTE | 2022-06-29 12:31 | P.PN ---
Subjective Progress Note Date: 06/29/22 A very pleasant 41-year-old male patient who presented to the hospital because of shortness of breath and he was further investigated by ultrasound Doppler of the lower extremity and a CT angiogram. The Doppler showed an acute DVT in the distal superficial femoral vein on the left consistent with DVT extending below the knee and the proximal calf pains. At the same time, the CT angiogram of the chest showed multiple bilateral upper lobe pulmonary emboli. Note that these emboli are new compared to the old exam. The patient is known to me. I taking care of him back in 2000. In fact he was in the hospital back in August 2020 and he was treated for Covid 19 infection. He recovered. During the course of his illness, he was found to have a DVT of the right lower extremity and pulmonary embolism. At that time, the patient was off anticoagulation and he was discharged home on anticoagulation with Eliquis and after 6 months and the coagulation was discontinued. 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 He was active during this time. No recent trauma. No recent surgeries. He is known to have hypertrophic cardiomyopathy. He was evaluated at the [facility]. He has an exercise-induced ventricular tachycardia and his previous cardiac MRI has shown asymmetric hypertrophic cardiomyopathy and the patient has a dual-chamber AICD in place. No recurrent Covid 19 infections. No other obvious causes or triggers for pulmonary embolism. At this point in time, he is on room air oxygen with a pulse ox of 92%. Is hemodynamically stable. Troponins are minimally elevated. His previous echocardiogram that was done in 2020 showed mild pulmonary hypertension, preserved LV function. His echocardiogram will be repeated. Patient is seen today 06/29/2022 in follow-up on the selective care unit. He is currently sitting up in bed. Awake and alert in no acute distress. He is maintaining good O2 saturation in the 90s on room air. Afebrile. Hemodynamically stable. Echocardiogram reveals preserved left ventricular systolic function with ejection fraction of 55%. RV systolic pressure is within normal limits. No significant valvular abnormalities. PTT 84.4. Heparin drip discontinued. Transitioned to Eliquis. Objective - Vital Signs Vital signs: Vital Signs Temp 97.6 F 06/29/22 08:00 Pulse 88 06/29/22 08:00 Resp 14 06/29/22 08:00 BP 124/80 06/29/22 08:00 Pulse Ox 96 06/29/22 08:00 FiO2 96 06/28/22 16:00 Intake & Output 06/28/22 06/29/22 06/29/22 18:59 06:59 18:59 Intake Total 205.231 178.130 Balance 205.231 178.130 Weight 110.5 kg Intake: Intake, IV Titration 205.231 178.130 Amount Heparin Sod,Pork in 0.45% 205.231 178.130 NaCl 25,000 unit In 0.45 % NaCl 1 250ml.bag @ 18 UNITS/KG/HR 20.82 mls/hr IV .Q12H1M [facility] Rx#: [id number] Other: Voiding Method Toilet Toilet # Voids 2 - Exam GENERAL EXAM: Alert, active, pleasant 41-year-old gentleman, on room air, comfortable in no apparent distress. HEAD: Normocephalic. EYES: Normal reaction of pupils, equal size. NOSE: Clear with pink turbinates. THROAT: No erythema or exudates. NECK: No masses, no JVD. CHEST: No chest wall deformity. LUNGS: Equal air entry with no crackles, wheeze, rhonchi or dullness. CVS: S1 and S2 normal with no audible murmur, regular rhythm. ABDOMEN: No hepatosplenomegaly, normal bowel sounds, no guarding or rigidity. SPINE: No scoliosis or deformity SKIN: No rashes CENTRAL NERVOUS SYSTEM: No focal deficits, tone is normal in all 4 extremities. EXTREMITIES: There is no peripheral edema. No clubbing, no cyanosis. Peripheral pulses are intact. - Labs CBC & Chem 7: 06/28/22 08:50 06/27/22 13:50 Labs: Abnormal Lab Results - Last 24 Hours (Table) 06/28/22 06/28/22 06/29/22 Range/Units 15:47 22:38 05:33 APTT 72.2 H 70.8 H 84.4 H (22.0-30.0) sec Assessment and Plan Assessment: Acute pulmonary embolism. A recurrent events. The patient has bilateral tiny pulmonary emboli and a DVT in the left lower extremity. This episode of pulmonary embolism was unprovoked. Note that the patient had another episode back in 2020 provoked by Covid 19. Nevertheless, this current episode is unprovoked and I'm inclined that the patient has underlying hypercoagulability. Previous investigation revealed that the patient was heterozygous for MTHFR gene. Fortunately, his pulse ox is 93% on room air oxygen. He is hemodynamically stable. We'll do another echocardiogram to evaluate his RV status. Troponin leak secondary to above. Echocardiogram revealed no evidence of right ventricular strain Previous history of Covid 19 infection back in August 2020 [place] by pulmonary embolism and DVT of the right lower extremity Heterozygous state for MTHFR gene mutation History of hypertrophic cardiomyopathy and the patient has an AICD in place History of exercise-induced VT Hypertension Plan: The patient was seen and evaluated Medications and labs reviewed Transitioned to Eliquis Recommend lifelong anticoagulation Cleared for discharge from the pulmonary standpoint Follow up with Dr. Washington in 1 week I have personally seen and examined the patient, performed the documentation and the assessment and plan as written. Number of minutes spent on the visit: 10.
--- NOTE | 2022-06-29 17:48 | P.DS ---
Providers Date of admission: 06/27/22 16:24 Expected date of discharge: 06/29/22 Attending physician: Av Guerrero Consults: 06/27/22 16:24 Consult Physician Urgent Consulting Provider: Louie Washington Consult Reason/Comments: pe Do you want consulting provider notified?: Yes Primary care physician: [facility] Course: Chief Complaint: Short of breath History of presenting complaint: This is a pleasant 41-year-old patient of Dr. Castañeda. Chronic stable medical conditions include hypertension, hypertrophic cardiomyopathy, exercise-induced nonsustained V. tach, DVT. Patient has AICD. Patient the past for DVT and PE received 6 months of anticoagulant ablation. It was felt to be contribution from COVID and MTHFR gene mutation. 2 weeks ago patient noticed some soreness in the left lower cough with no swelling. 2 days ago she started noticing some discomfort in the left thigh. Then for one be started now sitting some shortness of breath. Computed tomography scan of the ER showed multiple bilateral upper lobe pulmonary embolism with some enlargement of pulmonary arteries and DVT in the femoral vein. Started on IV heparin. No fever no chills. 06/29/2022: Patient started on eliquis today. Seen by Dr. Alonso from pulmonary. Discussed with Dr. Alonso: Cleared for discharge. Care was discussed with the patient and at bedside. Question answered. Patient will follow-up with vascular Dr. Miranda. Zane wrap. Compression stockings customize alteration. Above-knee stockings have been ordered Discussion and discharge planning more than 35 minutes Past medical history to include: DVT and PE in 2020: Hypertension hypertrophic cardiomyopathy, exercise-induced V. tach, AICD, kidney stones. MTHGFR gene mutation Social history: with 2 children. Works at the [employer]. No smoking or alcohol. No recreational drugs. Physical examination: VITAL SIGNS: GENERAL: BMI 44.6, sitting up in a chair, comfortable EYES: Pupils equal. Conjunctiva normal. HEENT: External appearance of nose and ears normal, oral cavity grossly normal. NECK: JVD not raised; masses not palpable. HEART: First and second heart sounds are normal; no edema. LUNGS: Respiratory rate normal; clear to auscultation. ABDOMEN: Soft, nontender, liver spleen not palpable, no masses palpable. PSYCH: Alert and oriented x3; mood and affect normal. EXTREMITY: Slight swelling of the lower extremities NEUROLOGICAL: Cranial nerves grossly intact; no facial asymmetry, power and sensation grossly intact. LYMPHATICS: No lymph nodes palpable in the axilla and neck INVESTIGATIONS, reviewed in the clinical context: 2-D echocardiogram: Moderate increased septal wall thickness. EF 55%. White count 11.1 hemoglobin 15 platelets 191 progression 3.9 creatinine 1.05 Troponin I 0.048, 0.050, 0.047 Telemetry rhythm personally reviewed by me: Sinus rhythm Chest x-ray film personally reviewed by me-AICD. Lung arroyo clear Doppler ultrasound left lower extremity: DVT in the distal femoral vein to proximal calf veins. Chest CTA: Multiple bilateral upper lobe pulmonary emboli. Enlarged pulmonary arteries. Assessment and plan: -Acute bilateral pulmonary embolism in a patient with prior DVT PE about 2 years ago when he received 6 months of NOAC. IV heparin. Patient started on eliquis today. Seen by Dr. Quintana from pulmonary stable for discharge. -Right ventricular strain from acute PE Positive troponin -Acute Left leg femoral and upper calf DVT IV heparin. Bilateral thigh stockings Patient follow-up with Dr. Parth Miranda from vascular outpatient -IV heparin monitoring: This Follow PTT -Hypertrophic cardiomyopathy, exercise-induced V. tach has AICD , Toprol-XL -MTHGFR gene mutation -Obesity BMI 33 Weight loss measures discussed with the patient Disposition: Home Plan - Discharge Summary New Discharge Prescriptions: New Apixaban [Eliquis Starter Pack (for VTE)] 5 - 10 mg PO DIRECTED 30 Days #1 each Famotidine [Pepcid] 20 mg PO BID #60 tab Continue Metoprolol Succinate (ER) [Toprol XL] 100 mg PO DAILY Multivitamins, Thera [Multivitamin (formulary)] 1 tab PO DAILY Discontinued Aspirin EC [Ecotrin Low Dose] 81 mg PO DAILY Discharge Medication List Metoprolol Succinate (ER) [Toprol XL] 100 mg PO DAILY 09/09/20 [History] Multivitamins, Thera [Multivitamin (formulary)] 1 tab PO DAILY 06/27/22 [History] Apixaban [Eliquis Starter Pack (for VTE)] 5 - 10 mg PO DIRECTED 30 Days #1 each 06/29/22 [Rx] Famotidine [Pepcid] 20 mg PO BID #60 tab 06/29/22 [Rx] Follow up Appointment(s)/Referral(s): Rl Castañeda DO [Primary Care Provider] - 1-2 days (CALL AND SCHEDULE APPOINTMENT.) Jacob Miranda MD [STAFF PHYSICIAN] - 1 Week (PLEASE CALL AND SCHEDULE APPOINTMENT, OFFICE WAS UNABLE TO TAKE PHONE CALL AT TIME OF YOUR DISCHARGE. YOU NEED TO BE SEEN DUE TO YOUR LEFT LOWER EXTREMITY DVT.) Louie Washington MD [STAFF PHYSICIAN] - 07/23/22 8:30 am Patient Instructions/Handouts: Famotidine (By mouth), Apixaban (By mouth), Pulmonary Embolism (DC), Deep Vein Thrombosis (DC) Discharge Disposition: HOME SELF-CARE
== END 2022-06-29 12:15 | disposition home or self-care (01) ==
LOC: EC 12:07 → INTOOBSV 16:24 → 3SCARD 16:24 → UNDODISIN 06-29 12:15
PROVIDERS: ADMIT Hospitalist; ATTEND Hospitalist
DX: I26.99 Other pulmonary embolism without acute cor pulmonale (principal); I82.412 Acute embolism and thrombosis of left femoral vein; I82.4Y2 Acute embolism and thrombosis of unspecified deep veins of left proximal lower extremity; I11.9 Hypertensive heart disease without heart failure; I42.2 Other hypertrophic cardiomyopathy; I47.20 Ventricular tachycardia, unspecified; I08.1 Rheumatic disorders of both mitral and tricuspid valves; E72.12 Methylenetetrahydrofolate reductase deficiency; E66.9 Obesity, unspecified; Z68.33 Body mass index [BMI] 33.0-33.9, adult; Z79.82 Long term (current) use of aspirin; Z79.899 Other long term (current) drug therapy; Z86.16 Personal history of COVID-19; I27.20 Pulmonary hypertension, unspecified; Z86.718 Personal history of other venous thrombosis and embolism; Z86.711 Personal history of pulmonary embolism; Z95.810 Presence of automatic (implantable) cardiac defibrillator; Z87.81 Personal history of (healed) traumatic fracture; Z87.442 Personal history of urinary calculi; Z90.49 Acquired absence of other specified parts of digestive tract; Z98.890 Other specified postprocedural states; Z82.49 Family history of ischemic heart disease and other diseases of the circulatory system
CPT/HCPCS: 96366 ×4; 96376 ×2; 96365; 96375; 99291; 36415; 93005; 93306; 85379; 80053; 84484; 85025; 85027; 85610; 85730 ×3; 71046; 93971; 71275; G0378 ×3; J1644 ×3; C9113 ×2; Q9950; Q9967